=== PATIENT | male | born 1960 | race Caucasian/White ===

== ENCOUNTER 2022-10-01 12:06 | Inpatient (IN) | payer OTHER ==
[2022-10-01] VITALS (17 sets, daily range): BP systolic 89–137; BP diastolic 32–83
[~2022-10-01] VITALS: Ht 182.9 cm; Wt 106.0 kg
[~2022-10-01 12:06] MED LIST: ALLOPURINOL100 MG PO; LISINOPRIL10 MG PO; LOPID600 MG PO; METOPROL TAR25 MG PO; PRILOSEC20 MG PO; SERTRALINE50 MG PO
--- NOTE | 2022-10-01 12:25 | NUR ---
PATIENT TO ROOM 8 VIA EMS
--- NOTE | 2022-10-01 12:47 | NUR ---
PORTABLE X RAY COMPLETE
[2022-10-01 13:03] LABS: GFR FOR AFR.AMER. > 60 ML/MIN (>=60 (CALC)); GFR OTHER RACES > 60 ML/MIN (>=60 (CALC))
[2022-10-01 13:06] LABS: BASO% 0.1 % (0-3); EOS% 1.6 % (0-8); HEMATOCRIT 27.9 % (39.0-50.0); HEMOGLOBIN 10.3 g/dl (14.0-18.0); IMMATURE GRANULOCYTES 0.4 % (0.0-5.0); LYMPH% 14.9 % (15-41); MEAN CORPUSCULAR HGB 36.9 pG CALC (26.0-32.0); MEAN CORPUSCULAR HGB CONC 36.9 g/dL CAL (32.0-36.0); MONO% 4.1 % (2-13); NEUT# 8.7 thou/uL (1.82-7.42); RED BLOOD COUNT 2.79 mill/uL (4.70-6.10); RED CELL DISTRI WIDTH 17.7 % (11.5-15.5)
[2022-10-01 13:17] LABS: ALBUMIN 2.7 g/dL (3.2-5.0); ALKALINE PHOSPHATASE 103 u/l (38-126); ANION GAP 10 (6-22 (CALC)); BILIRUBIN, TOTAL 4.7 mg/dL (0.0-1.4); BUN 17 mg/dL (8-23); BUN/CREATININE RATIO 25 (12-20 (CALC)); CARBON DIOXIDE 26 mmol/l (22-30); CHLORIDE 93 mmol/l (95-108); CREATININE 0.7 mg/dL (0.7-1.3); GFR FOR AFR.AMER. > 60 ML/MIN (>=60 (CALC)); GFR OTHER RACES > 60 ML/MIN (>=60 (CALC)); LIPASE 761 u/l (23-300); MAGNESIUM 1.5 mg/dL (1.6-2.3); POTASSIUM 3.7 mmol/l (3.5-5.1); SGOT/AST 145 u/l (19-48); SODIUM 125 mmol/l (137-146); TOTAL PROTEIN 8.5 g/dL (6.3-8.2)
[2022-10-01 13:32] LABS: NEUT% 78.9 % (42-76)
--- NOTE | 2022-10-01 13:32 | NUR ---
lactic acid 2.5, Dr Hart aware.
[2022-10-01 16:46] LABS: URINE BLOOD DIPSTICK LARGE (NEGATIVE); URINE COLOR BROWN; URINE GLUCOSE - DIPSTICK 100 mg/dL (NEGATIVE); URINE KETONE 15 mg/dL (NEGATIVE); URINE LEUK ESTERASE NEGATIVE (NEGATIVE); URINE PH 6.5 (4.5-8.0); URINE PROTEIN - DIPSTICK 30 mg/dL (NEG-TRACE); URINE UROBILINOGEN - DIPSTICK >=8.0 E.U./dL (0.2)
[2022-10-01 16:51] LABS: URINE BILIRUBIN - DIPSTICK LARGE (NEGATIVE); URINE NITRITE - DIPSTICK POSITIVE (Negative)
[2022-10-01 16:54] LABS: URINE SQUAMOUS EPITHELIAL CELL RARE EPI/hpf (0-FEW); URINE WBC 0-2 WBC/hpf (0-5)
--- NOTE | 2022-10-01 17:08 | NUR ---
PT TO CT
--- NOTE | 2022-10-01 17:50 | NUR ---
PATIENT ASSIGNED TO INPATIENT ROOM 277, TRANSPORTED BY WHEELCHAIR.
--- NOTE | 2022-10-01 18:15 | NUR ---
ARRIVED ON UNIT @ 1805 TRANSPORTED VIA W/C BY ED STAFF AND ASSISTED TO BED. ALERT AND ORIENTED X 3, ORIENTED TO ROOM AND CALL ALVAREZ. DENIES PAIN OR NAUSEA AT THIS TIME, # [address] TO LEFT AND RIGHT AC, TELE MONITOR IN PLACE CALL ALVAREZ IN REACH. SIGNIFICANT OTHER IN ROOM.
--- NOTE | 2022-10-01 19:45 | NUR ---
REPORT RECIEVED FROM [facility] NURSE. PT LAYING IN BED ON LEFT SIDE. O2 SATS 95% AND PT IS A/OX3. PT APPEARS AGITIATED. IV SITES APPEARS HEALTHY IN LAC AND RAC. ASSESSMENT COMPLETED. PT DENIES ANY PAIN AT THIS TIME.
[2022-10-02] VITALS (22 sets, daily range): BP systolic 76–112; BP diastolic 33–68
--- NOTE | 2022-10-02 00:43 | NUR ---
DREDGING INSPECTOR INFORMED ME OF PT BLOOD PRESSURE 89/32 ON AUTOMATIC MACHINE. RETOOK PT BLOOD PRESSURE MANUALLY WITH RESULT OF 108/68. PT DENIES ANY PAIN AT THIS TIME. PT AGITATED, UNCOOPERTAIVE AND APPEARS DROWSY. PT ENCOURAGED TO USE CALL LIGHT AND SAFETY PRECAUTIONS IN PLACE.
--- NOTE | 2022-10-02 04:38 | NUR ---
PT BLOOD PRESSURE READ 80/30 USING MINDRAY. MANUAL BLOOD PRESSURE TAKEN WITH A RESULT OF 110/60. PT IS A/OX3 AND APPEARS MORE COMPLIANT. PT DENIES ANY PAIN AT THIS TIME. CALL LIGHT WITHIN REACH AND SAFETY PRECAUTIONS IN PLACE.
--- NOTE | 2022-10-02 07:00 | NUR ---
REPORT FROM DANIEL RAMOS. ASSUMED PT CARE.
[2022-10-02 07:26] LABS: HEMATOCRIT 26.1 % (39.0-50.0); HEMOGLOBIN 9.6 g/dl (14.0-18.0); MEAN CELL VOLUME 101.6 fL CALC (80.0-100.0); MEAN CORPUSCULAR HGB 37.4 pG CALC (26.0-32.0); MEAN CORPUSCULAR HGB CONC 36.8 g/dL CAL (32.0-36.0); RED BLOOD COUNT 2.57 mill/uL (4.70-6.10); RED CELL DISTRI WIDTH 18.2 % (11.5-15.5)
[2022-10-02 07:38] LABS: INTERNATIONAL NORMALIZED RATIO 2.1 RATIO (0.7-1.3); PROTHROMBIN TIME 20.2 SECONDS (9.0-12.5)
[2022-10-02 07:48] LABS: ALBUMIN 2.4 g/dL (3.2-5.0); ALKALINE PHOSPHATASE 91 u/l (38-126); AMYLASE 75 u/l (30-110); ANION GAP 9 (6-22 (CALC)); BILIRUBIN, TOTAL 6.1 mg/dL (0.0-1.4); BUN 16 mg/dL (8-23); BUN/CREATININE RATIO 25 (12-20 (CALC)); CARBON DIOXIDE 30 mmol/l (22-30); CHLORIDE 95 mmol/l (95-108); CREATININE 0.6 mg/dL (0.7-1.3); GFR FOR AFR.AMER. > 60 ML/MIN (>=60 (CALC)); GFR OTHER RACES > 60 ML/MIN (>=60 (CALC)); MAGNESIUM 1.8 mg/dL (1.6-2.3); POTASSIUM 3.3 mmol/l (3.5-5.1); SGOT/AST 125 u/l (19-48); SODIUM 131 mmol/l (137-146); TOTAL PROTEIN 7.9 g/dL (6.3-8.2)
--- NOTE | 2022-10-02 07:51 | NUR ---
NOTIFIED US TECH OF PLATELET COUNT OF 60. US TECH NOTIFIED HARPREET OLIVO STATES OK TO DO PROCEDURE. PT TRANSFERED TO RADIOLOGY DEPARTMENT VIA WHEELCHAIR FOR PARACENTESIS.
--- NOTE | 2022-10-02 09:41 | NUR ---
NOTIFIED DR. BROWNE OF LOW BP 84/37, PT PLACED IN [facility] BP UP TO 90/39. NEW ORDERS RECEIVED AT THIS TIME. WILL MEDICATE AND CONTINUE TO MONITOR.
--- NOTE | 2022-10-02 11:23 | NUR ---
BP IMPROVED WITH BOLUS. PT RESTING IN BED. NO APPARENT DISTRESS NOTED. REMAINS AT BEDSIDE. CALL LIGHT WITHIN REACH. WILL CONTINUE TO MONITOR.
--- NOTE | 2022-10-02 14:17 | NUR ---
PT RESTING IN BED. NO APPARENT DISTRESS NOTED. CALL LIGHT WITHIN REACH. WILL CONTINUE TO MONITOR.
--- NOTE | 2022-10-02 16:30 | NUR ---
NOTIFIED STEFFI OLIVO OF LOW BP 87/40. [facility]. ORDERS FOR NS BOLUS AND ALBUMIN. WILL INITIATE WHEN PROFILED. PT VOIDED 150CC DARK LANRE OUTPUT. PT AROUSABLE, BUT LETHARGIC. AT BEDSIDE. DISCUSSED POC. PT AND VERBALIZED UNDERSTANDING. WILL CONTINUE TO MONITOR.
--- NOTE | 2022-10-02 17:07 | NUR ---
BOLUS AND ALBUMIN INFUSING AT THIS TIME CURRENT BP 81/36, HR 81.
--- NOTE | 2022-10-02 17:50 | NUR ---
16F VERA PLACED USING STERILE TECHNIQUE FOR BLADDER SCAN OF GREATER THAN 500ML RETAINED. PER STEFFI MANAGER LAUNDRY. ORANGE COLORED OUTPUT NOTED.
--- NOTE | 2022-10-02 18:00 | NUR ---
PT TRANSFERED TO ICU BED 1 FOR HYPOTENSION PER STEFFI PINEDAP. ACCOMPAINED TRANSFER. PT TRANSFERED VIA BED. REPORT GIVEN TO CIELO RN, ADRIEL RN. AND BRAD NORRIS.
--- NOTE | 2022-10-02 18:17 | NUR ---
PATIENT ARRIVES TO UNIT IN HOSPITAL BED, TREATMENT ROOM 1, PATIENT AWAKE AND ALERT, NO C/O PAIN OR DISCOMFORT, NO S/S OF DISTRESS NOTED, RESPIRATIONS EVEN AND UNLABORED ON O2@2L BY NC, HR 88, BP 103/53, 96%, 19 RESP, SR. AFEBRILE. PATIENT SETTLED INTO ROOM, AT BEDSIDE. AWAITING ORDERS FROM DR BROWNE IF ANY FORTHCOMING.
--- NOTE | 2022-10-02 21:00 | NUR ---
assess pt alert x3, pt seems sleeping, belly rounded, no respiratory distress or pain complain, held lopressor because of hemodinamic instability MAP of 68, will continue to monitor pt.
[2022-10-03] VITALS (24 sets, daily range): BP systolic 76–116; BP diastolic 37–69
[2022-10-03 05:49] LABS: BASO% 0.3 % (0-3); EOS% 3.4 % (0-8); HEMATOCRIT 21.3 % (39.0-50.0); IMMATURE GRANULOCYTES 0.8 % (0.0-5.0); LYMPH% 20.5 % (15-41); MEAN CELL VOLUME 101.9 fL CALC (80.0-100.0); MEAN CORPUSCULAR HGB 35.9 pG CALC (26.0-32.0); MEAN CORPUSCULAR HGB CONC 35.2 g/dL CAL (32.0-36.0); MONO% 7.9 % (2-13); NEUT# 4.18 thou/uL (1.82-7.42); NEUT% 67.1 % (42-76); RED BLOOD COUNT 2.09 mill/uL (4.70-6.10); RED CELL DISTRI WIDTH 18.2 % (11.5-15.5)
[2022-10-03 05:50] LABS: HEMOGLOBIN 7.5 g/dl (14.0-18.0)
[2022-10-03 05:52] LABS: INTERNATIONAL NORMALIZED RATIO 2.1 RATIO (0.7-1.3); PROTHROMBIN TIME 20.5 SECONDS (9.0-12.5)
[2022-10-03 05:53] LABS: ALBUMIN 2.4 g/dL (3.2-5.0); ALKALINE PHOSPHATASE 75 u/l (38-126); ANION GAP 7 (6-22 (CALC)); BUN 12 mg/dL (8-23); BUN/CREATININE RATIO 24 (12-20 (CALC)); CARBON DIOXIDE 27 mmol/l (22-30); CHLORIDE 100 mmol/l (95-108); CREATININE 0.5 mg/dL (0.7-1.3); GFR FOR AFR.AMER. > 60 ML/MIN (>=60 (CALC)); GFR OTHER RACES > 60 ML/MIN (>=60 (CALC)); POTASSIUM 3.2 mmol/l (3.5-5.1); SGOT/AST 97 u/l (19-48); SODIUM 131 mmol/l (137-146); TOTAL PROTEIN 7.3 g/dL (6.3-8.2)
--- NOTE | 2022-10-03 06:06 | NUR ---
pt urine noted orange/ bloodish 300 cc for 12 hr. will notified incoming shift.
--- NOTE | 2022-10-03 08:00 | NUR ---
Patient lying in bed. Patient denies any pain at this time. No s/s of distress at this time.
[2022-10-03 08:40] LABS: DIRECT BILIRUBIN 1.9 mg/dl (0.0-0.3)
--- NOTE | 2022-10-03 09:30 | NUR ---
Patient lying in bed. at bedside. and patient state that patient no longer takes Zoloft or Zyloprim as it was discontinued 3 to 4 years ago. Both advised that medications were reordered for patient 10/01. Patient refused to take morning dose of above mentioned medications.
--- NOTE | 2022-10-03 12:00 | NUR ---
Patient lying in bed. at bedside. advised of patient's current NPO status. Verbalized understanding. No issues or concerns at this time. No s/s of distress.
--- NOTE | 2022-10-03 14:00 | NUR ---
Patient lying in bed sleeping. No s/s of distress. Patient denies any pain at this time.
--- NOTE | 2022-10-03 16:00 | NUR ---
Patient lying in bed. and family member at bedside. Patient denies any pain at this time. Advised patient that scheduled US would be soon and after results, depending on doctor's orders, patient can resume diet. No other issues or concerns at this time. No s/s of distress.
--- NOTE | 2022-10-03 18:00 | NUR ---
Patient lying in bed. No s/s of distresss. Patient refused dinner. Patient has had low output all day. MD requested patient have NS @ 75mL to increase output. Order sent to [employer] and structural steel detailer notified . No other issues or concerns at this time.
[2022-10-04] VITALS (18 sets, daily range): BP systolic 70–120; BP diastolic 30–96
--- NOTE | 2022-10-04 08:00 | NUR ---
Patient lying in bed. at bedside for MD rounding. Patient denies any pain at this time. No s/s of distress.
[2022-10-04 09:46] LABS: BASO% 0.2 % (0-3); EOS% 3.1 % (0-8); HEMATOCRIT 20.8 % (39.0-50.0); HEMOGLOBIN 7.5 g/dl (14.0-18.0); IMMATURE GRANULOCYTES 1.2 % (0.0-5.0); LYMPH% 14.7 % (15-41); MEAN CORPUSCULAR HGB 37.1 pG CALC (26.0-32.0); MEAN CORPUSCULAR HGB CONC 36.1 g/dL CAL (32.0-36.0); MONO% 9.3 % (2-13); NEUT# 7.2 thou/uL (1.82-7.42); NEUT% 71.5 % (42-76); RED BLOOD COUNT 2.02 mill/uL (4.70-6.10); RED CELL DISTRI WIDTH 18.9 % (11.5-15.5)
--- NOTE | 2022-10-04 10:00 | NUR ---
Patient lying in bed. at bedside. Patient denies any pain at this time. No s/s of distress.
[2022-10-04 10:01] LABS: INTERNATIONAL NORMALIZED RATIO 1.9 RATIO (0.7-1.3); PROTHROMBIN TIME 18.2 SECONDS (9.0-12.5)
[2022-10-04 10:07] LABS: ALBUMIN 2.2 g/dL (3.2-5.0); ALKALINE PHOSPHATASE 75 u/l (38-126); ANION GAP 6 (6-22 (CALC)); BILIRUBIN, TOTAL 5.4 mg/dL (0.0-1.4); BUN 9 mg/dL (8-23); BUN/CREATININE RATIO 18 (12-20 (CALC)); CARBON DIOXIDE 27 mmol/l (22-30); CHLORIDE 104 mmol/l (95-108); CREATININE 0.5 mg/dL (0.7-1.3); GFR FOR AFR.AMER. > 60 ML/MIN (>=60 (CALC)); GFR OTHER RACES > 60 ML/MIN (>=60 (CALC)); POTASSIUM 3.5 mmol/l (3.5-5.1); SGOT/AST 96 u/l (19-48); SODIUM 134 mmol/l (137-146); TOTAL PROTEIN 6.9 g/dL (6.3-8.2)
--- NOTE | 2022-10-04 11:40 | NUR ---
PATIENT TRANSFERED FROM ICU, BEDSIDE REPORT RECIEVED, ASSESSMENT COMPLETE, PATIENT RESTING COMFORTBALY.
--- NOTE | 2022-10-04 14:30 | NUR ---
HELD LACTULOSE D/T PATIENT HAVING BM X4 TODAY.
--- NOTE | 2022-10-04 18:03 | NUR ---
Pt was asked to get changed, pt refused and became very combative and threatened myself and OPERATIONS SUPERVISOR CHEMICAL CLEANINGAiram Wallace. pt stated "I'm going to kill one of you", after changing the pt, pt was asked if he wanted his dinner tray, pt refused meal that the time. Nurse Denny was notified.
--- NOTE | 2022-10-04 19:36 | NUR ---
Pt refused blood pressure when asked, the nurse was notified.
--- NOTE | 2022-10-04 20:25 | NUR ---
PT IN BED RESTING WITH EYES CLOSED BREATHING EVEN AND UNLABORED. NO S/S OF DISTRESS NOTED. PT DENIES PAIN OR DISCOMFORT. PT REFUSE ASSESMENT AND MEDICATIONS PT STATES "LET ME SLEEP" CALL LIGHT IN REACH AND BED IN LOWEST POSITION
--- NOTE | 2022-10-04 23:45 | NUR ---
PT IN BED RESTING WITH EYES CLOSED BREATHING EVEN AND UNLABORED. NO S/S OF DISTRESS NOTED. PT HAS HISTORY OF REFUSING CARE. CALL LIGT IN REACH AND BED IN LOWEST POSITION
[2022-10-05] VITALS: BP 112/38
[2022-10-05 03:59] VITALS: BP 125/74
--- NOTE | 2022-10-05 04:10 | NUR ---
PT IN BED RESTING WITH EYES CLOSED BREATHING EVEN AND UNLABORED. NO S/S OF DISTRESS NOTED. CALL LIGHT IN REACH AND BED IN LOWEST POSITION.
[2022-10-05 05:29] LABS: BASO% 0.5 % (0-3); HEMATOCRIT 22.2 % (39.0-50.0); HEMOGLOBIN 7.9 g/dl (14.0-18.0); IMMATURE GRANULOCYTES 1.7 % (0.0-5.0); LYMPH% 19.4 % (15-41); MEAN CELL VOLUME 104.2 fL CALC (80.0-100.0); MEAN CORPUSCULAR HGB 37.1 pG CALC (26.0-32.0); MEAN CORPUSCULAR HGB CONC 35.6 g/dL CAL (32.0-36.0); NEUT# 7.35 thou/uL (1.82-7.42); NEUT% 67.4 % (42-76); RED BLOOD COUNT 2.13 mill/uL (4.70-6.10); RED CELL DISTRI WIDTH 19.4 % (11.5-15.5)
[2022-10-05 05:42] LABS: INTERNATIONAL NORMALIZED RATIO 1.9 RATIO (0.7-1.3); PROTHROMBIN TIME 18.4 SECONDS (9.0-12.5)
[2022-10-05 05:45] LABS: ALBUMIN 2.4 g/dL (3.2-5.0); ALKALINE PHOSPHATASE 78 u/l (38-126); ANION GAP 8 (6-22 (CALC)); BILIRUBIN, TOTAL 4.9 mg/dL (0.0-1.4); BUN 9 mg/dL (8-23); BUN/CREATININE RATIO 18 (12-20 (CALC)); CARBON DIOXIDE 25 mmol/l (22-30); CHLORIDE 106 mmol/l (95-108); CREATININE 0.5 mg/dL (0.7-1.3); GFR FOR AFR.AMER. > 60 ML/MIN (>=60 (CALC)); GFR OTHER RACES > 60 ML/MIN (>=60 (CALC)); POTASSIUM 3.4 mmol/l (3.5-5.1); SGOT/AST 100 u/l (19-48); SODIUM 136 mmol/l (137-146); TOTAL PROTEIN 7.4 g/dL (6.3-8.2)
[2022-10-05 06:42] VITALS: BP 113/67
--- NOTE | 2022-10-05 08:00 | NUR ---
SLEEPING, RESPONDS POORLY TO VERBAL STIMULI, STATES HE DOES NOT WANT TO BE DISTURBED, ORIENTED TO PLACE AND PERSON, DENIES PAIN, REFUSES TO TAKE SOME MEDS, IVF INFUSING, TELE MONITOR IN PLACE, VERA CATHETER IN PLACE WITH DARK TEA-COLORED URINE, CALL ALVAREZ IN REACH AND BED LOCKED IN LOWEST POSITION.
[2022-10-05 10:21] VITALS: BP 124/49
[2022-10-05 14:47] VITALS: BP 99/54
--- NOTE | 2022-10-05 16:00 | NUR ---
SLEEPING, BREATHING EVEN AND NON-LABORED
[2022-10-05 20:10] VITALS: BP 95/43
--- NOTE | 2022-10-05 20:10 | NUR ---
PATIENT RESTING IN BED ON HIS LEFT SIDE. ALERT. ANSWERS AT TIMES TO STAFF. CALM. ASSESSMENT COMPLETE. DENIES ANY PAIN OR DISCOMFORT. NO DISTRESS NOTED. VERA PATENT DRAINING DARK RED TINGED URINE. BED REMAINS IN LOW POSITION. CALL ALVAREZ IN REACH. BED ALARM ACTIVE FOR SAFETY.
[2022-10-06] VITALS (7 sets, daily range): BP systolic 96–117; BP diastolic 43–69
--- NOTE | 2022-10-06 00:12 | NUR ---
PATIENT REMAINS RESTING IN BED. NO COMPLAINTS OF PAIN. NO SIGNS OF DISTRESS NOTED. BED REMAINS IN LOW POSITION. CALL ALVAREZ IN REACH. BED ALARM ACTIVE.
--- NOTE | 2022-10-06 04:20 | NUR ---
PATIENT REMAINS RESTING IN BED. TURNS SELF IN BED WITHOUT DIFFICULTY. NO COMPLAINTS VOICED AT THIS TIME. NO SIGNS OF DISTRESS. BED REMAINS IN LOW POSITION. BED ALARM ACTIVE. CALL ALVAREZ IN REACH.
[2022-10-06 05:32] LABS: BASO% 0.4 % (0-3); EOS% 1.4 % (0-8); HEMATOCRIT 20.7 % (39.0-50.0); HEMOGLOBIN 7.5 g/dl (14.0-18.0); LYMPH% 20.9 % (15-41); MEAN CORPUSCULAR HGB 37.7 pG CALC (26.0-32.0); MEAN CORPUSCULAR HGB CONC 36.2 g/dL CAL (32.0-36.0); MONO% 9.9 % (2-13); NEUT# 6.17 thou/uL (1.82-7.42); NEUT% 66.4 % (42-76); RED BLOOD COUNT 1.99 mill/uL (4.70-6.10); RED CELL DISTRI WIDTH 20.3 % (11.5-15.5)
[2022-10-06 05:41] LABS: INTERNATIONAL NORMALIZED RATIO 1.8 RATIO (0.7-1.3); PROTHROMBIN TIME 17.4 SECONDS (9.0-12.5)
[2022-10-06 05:43] LABS: ALBUMIN 2.1 g/dL (3.2-5.0); ALKALINE PHOSPHATASE 81 u/l (38-126); ANION GAP 8 (6-22 (CALC)); BILIRUBIN, TOTAL 3.5 mg/dL (0.0-1.4); BUN 9 mg/dL (8-23); BUN/CREATININE RATIO 17 (12-20 (CALC)); CARBON DIOXIDE 25 mmol/l (22-30); CHLORIDE 107 mmol/l (95-108); CREATININE 0.5 mg/dL (0.7-1.3); GFR FOR AFR.AMER. > 60 ML/MIN (>=60 (CALC)); GFR OTHER RACES > 60 ML/MIN (>=60 (CALC)); LIPASE 124 u/l (23-300); POTASSIUM 3.1 mmol/l (3.5-5.1); SGOT/AST 95 u/l (19-48); SODIUM 136 mmol/l (137-146); TOTAL PROTEIN 6.6 g/dL (6.3-8.2)
--- NOTE | 2022-10-06 07:42 | NUR ---
BEDSIDE SHIFT REPORT, PT RESTING WITH EYES CLOSED BUT RESPONDS TO VERBAL AND TACTILE STIMULATION, NO C/O DISCOMFORT, IVF 0.9 NS INFUSING TO SITE IN LFA, TELE MONITOR IN PLACE, CALL ALVAREZ IN REACH AND BED LOCKED IN LOWEST POSITION.
--- NOTE | 2022-10-06 12:00 | NUR ---
RESTING IN BED, INCONTINENT OF BM, CONDITION STABLE.
--- NOTE | 2022-10-06 16:00 | NUR ---
REMAINS IN BED AND HAS EPISODES OF INCONTINENT STOOLS, DOES NOT MAKE BOWEL ELIMINATION NEEDS KNOWN TO STAFF, KEVIN CARE GIVEN.
--- NOTE | 2022-10-06 20:00 | NUR ---
RECEIVED REPORT FROM DAY SHIFT RN. PATIENT IS RESTING IN BED IN SUPINE POSIITON, WITH EYES CLOSED. PT IS A&O WITH SOME CONFUSION NOTED. NO SIGSN OF SYMPTOMS OF PAIN NOTED NOR VERBALIZED BY PT AT THIS TIME. ASSESSMENT COMPLETED. PT IS ON ROOM AIR, BREATHING IS EVEN AND UNLABORED. VERA IN PLACE. IV IS PATENT AND FLUSHES WELL. BED ALARM ON, CALL LIGHT AND BEDSIDE TABLE WITHIN REACH, SAFETY PRECAUTIONS IN PLACE.
--- NOTE | 2022-10-06 23:59 | NUR ---
PT IS RESTING IN BED IN LEFT SIDE RECUMBENT POSITION WITH EYES CLOSED. NO SIGNS OF PAIN OR DISTRESS NOTED NOR VERBALIZED AT THIS TIME. CALL LIGHT AND BEDSIDE TABLE WITHIN REACH.
[2022-10-07 00:02] VITALS: BP 108/42
[2022-10-07 04:09] VITALS: BP 121/59
--- NOTE | 2022-10-07 04:55 | NUR ---
PT IS RESTING IN BED IN RIGHT SIDE RECUMBENT POSITION WITH EYES CLOSED. PT IS NPO FOR ULTRA SOUND TODAY. PT IS A&O WITH CONFUSION NOTED. PT REFUSED LABS THIS MORNING. PT IS ON ROOM AIR, BREATHING EVEN AND UNLABORED. IV IS PATENT AND FLUSHES WELL. CALL LIGHT AND BEDSIDE TABLE WITHIN REACH. SAFETY PRECAUTIONS IN PLACE.
--- NOTE | 2022-10-07 07:05 | NUR ---
PT RESTING IN BED . STUDENT AT BEDSIDE VITAL SIGNS TAKEN. PT A/OX3 ASSESSMENT COMPLETED. HEART RHYTHM ON TELE. RESPIRATIONS ON ROOM AIR. IV SITE NOTED. PT NPO TO RECIEVE ULTRASOUND TODAY UNKNOWN TIME FRAME. PT DENIES ADDITIONAL NEEDS AT THE TIME ALL SAFETY PRECAUTIONS IN PLACE WITH CALL LIGHT IN REACH.
[2022-10-07 08:43] LABS: BASO% 0.5 % (0-3); EOS% 1.7 % (0-8); HEMATOCRIT 22.2 % (39.0-50.0); HEMOGLOBIN 7.8 g/dl (14.0-18.0); IMMATURE GRANULOCYTES 0.8 % (0.0-5.0); LYMPH% 19.2 % (15-41); MEAN CELL VOLUME 106.7 fL CALC (80.0-100.0); MEAN CORPUSCULAR HGB 37.5 pG CALC (26.0-32.0); MEAN CORPUSCULAR HGB CONC 35.1 g/dL CAL (32.0-36.0); MONO% 10.5 % (2-13); NEUT# 6.57 thou/uL (1.82-7.42); NEUT% 67.3 % (42-76); RED BLOOD COUNT 2.08 mill/uL (4.70-6.10); RED CELL DISTRI WIDTH 21.1 % (11.5-15.5)
[2022-10-07 10:27] LABS: ALBUMIN 2.2 g/dL (3.2-5.0); ALKALINE PHOSPHATASE 77 u/l (38-126); ANION GAP 10 (6-22 (CALC)); BILIRUBIN, TOTAL 3.9 mg/dL (0.0-1.4); BUN 11 mg/dL (8-23); BUN/CREATININE RATIO 20 (12-20 (CALC)); CARBON DIOXIDE 26 mmol/l (22-30); CHLORIDE 108 mmol/l (95-108); CREATININE 0.6 mg/dL (0.7-1.3); GFR FOR AFR.AMER. > 60 ML/MIN (>=60 (CALC)); GFR OTHER RACES > 60 ML/MIN (>=60 (CALC)); POTASSIUM 3.6 mmol/l (3.5-5.1); SGOT/AST 109 u/l (19-48); SODIUM 139 mmol/l (137-146); TOTAL PROTEIN 7.1 g/dL (6.3-8.2)
[2022-10-07 11:00] VITALS: BP 110/47
--- NOTE | 2022-10-07 14:06 | NUR ---
Attempted treatment x2 today, am pt curled up on L side with present, wanted therapy held off until briefs were obtained. In pt pt in same position and refused to participate in treatment.
[2022-10-07 14:44] VITALS: BP 123/63
--- NOTE | 2022-10-07 16:18 | NUR ---
PT HAS HAD ATLEAST MORE THAN 3 BM TODAY PT TAKES MEDICATIONS WHOLE. PT HAS BEEN DRINKING WATER. PT FAMILY STATES PT DENIES EATING. PROVIDER AWARE.
[2022-10-07 18:39] VITALS: BP 105/44
[2022-10-07 20:32] VITALS: BP 99/41
--- NOTE | 2022-10-07 20:57 | NUR ---
PT RESTING IN BED, VITALS ARE STABLE, CALL LIGHT WITHIN REACHED, BED ALARM ON, WILL CONT TO MONITOR
[2022-10-08] VITALS (7 sets, daily range): BP systolic 77–111; BP diastolic 32–59
[2022-10-08 04:44] LABS: BASO% 0.4 % (0-3); EOS% 1.2 % (0-8); HEMATOCRIT 22.5 % (39.0-50.0); HEMOGLOBIN 7.9 g/dl (14.0-18.0); IMMATURE GRANULOCYTES 0.3 % (0.0-5.0); LYMPH% 18.7 % (15-41); MEAN CELL VOLUME 106.6 fL CALC (80.0-100.0); MEAN CORPUSCULAR HGB 37.4 pG CALC (26.0-32.0); MEAN CORPUSCULAR HGB CONC 35.1 g/dL CAL (32.0-36.0); MONO% 7.9 % (2-13); NEUT# 6.88 thou/uL (1.82-7.42); NEUT% 71.5 % (42-76); RED BLOOD COUNT 2.11 mill/uL (4.70-6.10); RED CELL DISTRI WIDTH 20.8 % (11.5-15.5)
[2022-10-08 04:52] LABS: INTERNATIONAL NORMALIZED RATIO 1.8 RATIO (0.7-1.3); PROTHROMBIN TIME 17.7 SECONDS (9.0-12.5)
[2022-10-08 05:02] LABS: ALBUMIN 2.2 g/dL (3.2-5.0); ALKALINE PHOSPHATASE 80 u/l (38-126); ANION GAP 6 (6-22 (CALC)); BILIRUBIN, TOTAL 3.8 mg/dL (0.0-1.4); BUN 11 mg/dL (8-23); BUN/CREATININE RATIO 20 (12-20 (CALC)); CARBON DIOXIDE 29 mmol/l (22-30); CHLORIDE 106 mmol/l (95-108); CREATININE 0.6 mg/dL (0.7-1.3); GFR FOR AFR.AMER. > 60 ML/MIN (>=60 (CALC)); GFR OTHER RACES > 60 ML/MIN (>=60 (CALC)); MAGNESIUM 1.4 mg/dL (1.6-2.3); SGOT/AST 119 u/l (19-48); SODIUM 138 mmol/l (137-146); TOTAL PROTEIN 7.1 g/dL (6.3-8.2)
--- NOTE | 2022-10-08 05:05 | NUR ---
PT REFUSED VITALS TO BE TAKEN
--- NOTE | 2022-10-08 08:18 | NUR ---
BEDSIDE SHIFT REPORT, PT AWAKE ALERT AND ORIENTED TO PERSON AND PLACE, NO C/O DISCOMFORT, TELE MONITOR IN PLACE, CALL ALVAREZ IN REACH AND BED LOCKED IN LOWEST POSITION.
--- NOTE | 2022-10-08 12:00 | NUR ---
RESTING IN BED, REFUSED MEAL, SPOUSE AT BEDSIDE, ALL NEEDS ADDRESSED.
--- NOTE | 2022-10-08 16:00 | NUR ---
RESTING QUIELTY IN BED ALL DAY, MORE ORIENTED AND ALERT BUT DEMOTIVATED, ALL NEEDS ADDRESSED, CALL ALVAREZ IN REACH.
--- NOTE | 2022-10-08 19:44 | NUR ---
REPORT RECIEVED. PT RESTING IN LOW FOWLERS POSITION. PT A/OX2. RESPIRATIONS EVEN AND UNLABORED ON ROOM AIR. LUNG SOUNDS CLEAR. HEART RHYTHM NORMAL WITH TELE IN PLACE. BOWEL SOUNDS ACTIVE. PT REFUSING LACTULOSE AT THIS TIME. #22G LW PATENT. SKIN INTACT. PT DENIES OF ANY PAINS OR DISCOMFORTS. ALL SAFTEY PRECAUTIONS ARE IN PLACE WITH CALL LIGHT IN REACH. BED ALARM ACTIVE.
[2022-10-09 00:07] VITALS: BP 97/43
--- NOTE | 2022-10-09 00:34 | NUR ---
PT SLEEPING IN SEMI FOWLERS POSITION. RESPIRATIONS EVEN AND UNLABORED. TELE MONITORING IN PLACE. VERA CATH IN PLACE, DRAINGING PER GRAVITY. NO SIGNS OF ANY DISTRESS. ALL SAFTEY PRECAUTIONS ARE IN PLACE WITH CALL LIGHT IN REACH. BED ALARM ACTIVE
--- NOTE | 2022-10-09 04:51 | NUR ---
PT SLEEPING IN SEMI FOWLERS POSITION. RESPIRATIONS EVEN AND UNLABORED ON ROOM AIR . TELE MONITORING IN PLACE. VERA CATH IN PLACE, DRAINGING PER GRAVITY. NO SIGNS OF ANY DISTRESS. ALL SAFTEY PRECAUTIONS ARE IN PLACE WITH CALL LIGHT IN REACH. BED ALARM ACTIVE
[2022-10-09 05:03] VITALS: BP 92/41
--- NOTE | 2022-10-09 05:15 | NUR ---
PT REFUSED WEIGHT ON 10/09/22
[2022-10-09 06:04] LABS: BASO% 0.5 % (0-3); EOS% 1.3 % (0-8); HEMATOCRIT 22.4 % (39.0-50.0); HEMOGLOBIN 7.9 g/dl (14.0-18.0); IMMATURE GRANULOCYTES 0.5 % (0.0-5.0); LYMPH% 20.6 % (15-41); MEAN CELL VOLUME 106.7 fL CALC (80.0-100.0); MEAN CORPUSCULAR HGB 37.6 pG CALC (26.0-32.0); MEAN CORPUSCULAR HGB CONC 35.3 g/dL CAL (32.0-36.0); MONO% 8.4 % (2-13); NEUT# 8.39 thou/uL (1.82-7.42); NEUT% 68.7 % (42-76); RED BLOOD COUNT 2.1 mill/uL (4.70-6.10); RED CELL DISTRI WIDTH 20.2 % (11.5-15.5)
[2022-10-09 06:15] VITALS: BP 91/40
[2022-10-09 06:15] LABS: INTERNATIONAL NORMALIZED RATIO 1.7 RATIO (0.7-1.3); PROTHROMBIN TIME 16.9 SECONDS (9.0-12.5)
--- NOTE | 2022-10-09 06:16 | NUR ---
PT REFUSING WEIGHT.
[2022-10-09 06:30] LABS: ALBUMIN 2.2 g/dL (3.2-5.0); ALKALINE PHOSPHATASE 90 u/l (38-126); ANION GAP 6 (6-22 (CALC)); BILIRUBIN, TOTAL 3.7 mg/dL (0.0-1.4); BUN 11 mg/dL (8-23); BUN/CREATININE RATIO 18 (12-20 (CALC)); CARBON DIOXIDE 27 mmol/l (22-30); CHLORIDE 104 mmol/l (95-108); CREATININE 0.6 mg/dL (0.7-1.3); GFR FOR AFR.AMER. > 60 ML/MIN (>=60 (CALC)); GFR OTHER RACES > 60 ML/MIN (>=60 (CALC)); MAGNESIUM 1.6 mg/dL (1.6-2.3); POTASSIUM 3.1 mmol/l (3.5-5.1); SGOT/AST 136 u/l (19-48); SODIUM 134 mmol/l (137-146); TOTAL PROTEIN 7.1 g/dL (6.3-8.2)
--- NOTE | 2022-10-09 07:02 | NUR ---
PT RESTING IN LOW FOWLERS POSITION. PT A/OX3/SELF. ASSESSMENT COMPLETED STUDENT TAKING VS AT THIS TIME. HEART RHYTHM ON TELE RESPIRATIONS ON ROOM AIR. IV SITE NOTED TO [facility]. PT EDUCATION ON LACTULOSE. PT STATED UNDERSTANDING. PT BA ACTIVE. PT DENIES ADDITIONAL NEEDS AT THE TIME ALL SAFETY PRECAUTIONS IN PLACE.
[2022-10-09 07:06] VITALS: BP 101/47
[2022-10-09] MEDS ORDERED: LOPRESSOR25 MG PO (10:49)
[2022-10-09] MEDS ORDERED: MIRTAZAPINE15 MG PO (10:49)
[2022-10-09] MEDS ORDERED: LASIX20 MG PO (10:49)
[2022-10-09] MEDS ORDERED: MIDODRINE5 MG PO (10:49)
[2022-10-09] MEDS ORDERED: ALDACTONE25 MG PO (10:49)
[2022-10-09] MEDS ORDERED: SERTRALINE50 MG PO (10:49)
[2022-10-09] MEDS ORDERED: TAB-A-VITE W/1 COMBO PO (10:49)
[2022-10-09] MEDS ORDERED: LACTULOSE10 GM/15 M PO (10:49)
[2022-10-09 11:01] VITALS: BP 124/61
--- NOTE | 2022-10-09 12:04 | NUR ---
Discharge instructions given. Patient verbalizes understanding of same. Discharged in stable condition via Medical Transport to *Other with staff. All belongings sent with pt. bajwa kept . teleremoved iv removed.
--- NOTE | 2022-10-09 21:35 | NUR ---
RECEIVED A CALL FROM THE OF THE PATIENT AFTER DISCHARGE. IS UPSET THAT THE PATIENT WAS DISCHARGED AND STATED HE WAS NOT READY. STATES HE IS AT [facility] ED NOW.
== END 2022-10-09 11:57 | DRG 432 ==
LOC: ED 12:06 → ED-I 15:20 → ED 15:37 → MS2 15:38 → ICU 10-02 18:00 → MS2 10-04 11:26
PROVIDERS: Family Medicine; Internal Medicine; Nurse Practitioner Family; ADMIT Internal Medicine; ATTEND Internal Medicine
PROC: 0W9G3ZZ Drainage of Peritoneal Cavity, Percutaneous Approach (ICD-10-PCS; principal; 2022-10-02)
PROC: 0T9B70Z Drainage of Bladder with Drainage Device, Via Natural or Artificial Opening (ICD-10-PCS; 2022-10-02)
DX: K70.31 Alcoholic cirrhosis of liver with ascites (principal); K85.20 Alcohol induced acute pancreatitis without necrosis or infection; D68.9 Coagulation defect, unspecified; E87.1 Hypo-osmolality and hyponatremia; F10.239 Alcohol dependence with withdrawal, unspecified; E86.0 Dehydration; E83.42 Hypomagnesemia; D53.9 Nutritional anemia, unspecified; I95.89 Other hypotension; K82.8 Other specified diseases of gallbladder; R33.9 Retention of urine, unspecified; D69.59 Other secondary thrombocytopenia; K59.00 Constipation, unspecified; Y90.0 Blood alcohol level of less than 20 mg/100 ml; Z20.822 Contact with and (suspected) exposure to COVID-19; Z91.199 Patient's noncompliance with other medical treatment and regimen due to unspecified reason
CPT/HCPCS: J3475; P9047; Q9967